=== PATIENT | female | born 1985 | race African-American/Black ===

== ENCOUNTER 2018-07-30 12:58 | Emergency (ER) | payer MEDICAID ==
[~2018-07-30] VITALS: Ht 157.5 cm; Wt 63.0 kg
[2018-07-30 13:20] VITALS: BP 120/78
== END 2018-07-30 17:54 | disposition left against medical advice (07) ==
LOC: ER 14:04
DX: R10.9 Unspecified abdominal pain (principal); Z53.21 Procedure and treatment not carried out due to patient leaving prior to being seen by health care provider